=== PATIENT | male | born 1955 | race Caucasian/White ===

== ENCOUNTER 2017-10-05 08:22 | Day surgery (SDC) | payer OTHER ==
[2017-10-05] VITALS (9 sets, daily range): BP systolic 130–164; BP diastolic 60–96
[~2017-10-05] VITALS: Ht 185.4 cm; Wt 103.4 kg
--- NOTE | 2017-10-05 07:35 | Pre-Procedure Note/Attestation ---
Pre-Procedure Note/Attestation Complete Prior to Procedure Planned Procedure: left Procedure Narrative: cataract extraction with implant left eye Indications for Procedure Pre-Operative Diagnosis: cataract left eye Attestation I attest that I discussed the nature of the procedure; its benefits; risks and complications; and alternatives (and the risks and benefits of such alternatives ), prior to the procedure, with the patient (or the patient's legal data entry representative). I attest that, if there was a reasonable possibility of needing a blood transfusion, the patient (or the patient's legal data entry representative) was given the [facility] standardized written summary, pursuant to the [place] Blood Safety Act ([place] [facility] and Safety Code # 1645, as amended). I attest that I re-evaluated the patient just prior to the surgery and that there has been no change in the patient's H&P, except as documented below: Jorge Carrillo MD Oct 05, 2017 07:35
[~2017-10-05 08:22] MED LIST: Akten 3.5% 1ml Btl ONE; BSS 15ml BTL ONE; BSS 500ml btl ONE; COUMADIN7.5 MG ORAL; Dexamethasone 4mg/ml vial ONE; EPINEPHrine 1mg/1ml Amp ONE; LISINOPRIL5 MG ORAL; Lidocaine 1% MPF 10mg/ml 5ml ONE; METOPROLOL SUCC25 MG ORAL; Povidone-Iodine 5% opth solution ONE; SIMVASTATIN5 MG ORAL; Sodium Hyaluronate 14 mg/ml 0.85ml ONE; Tobradex Opth Susp 2.5ml ONE; VITAMIN D1000 UNI1 ORAL
[2017-10-05] MEDS: Akten 3.5% 1ml Btl LEFT EYE SCH ×3 (08:49→09:10)
[2017-10-05] MEDS: Flurbiprofen 0.03% Opth Sol 2.5ml LEFT EYE SCH ×3 (08:49→09:10)
[2017-10-05] MEDS: Vigamox Opth Soln 3ml LEFT EYE SCH ×3 (08:49→09:10)
[2017-10-05] MEDS: Tropicamide 1% Opth 15ml Soln LEFT EYE SCH ×3 (08:49→09:09)
[2017-10-05] MEDS: Tobradex Opth Susp 2.5ml LEFT EYE SCH ×3 (08:49→09:10)
[2017-10-05] MEDS: Phenylephrine 2.5% Op 2ml Soln LEFT EYE SCH ×3 (08:49→09:10)
[2017-10-05] MEDS ORDERED: fentaNYL 100 mcg/2 mL IV ONE (10:00)
[2017-10-05] MEDS ORDERED: LR 1000ml ONE (10:00)
[2017-10-05] MEDS ORDERED: Midazolam 2mg/2ml Inj ONE (10:00)
[2017-10-05] MEDS ORDERED: Sterile Water Irrig 1000ml IRRIG ONE (10:00)
[2017-10-05] MEDS ORDERED: NS Irrig 1000ml ONE (10:00)
--- NOTE | 2017-10-05 10:14 | Anethesia Preoperative Eval ---
Anesthesia Pre-op PMH/ROS General Date of Evaluation: Oct 05, 2017 Time of Evaluation: 09:55 Anesthesiologist: inga ASA Score: ASA 2 Mallampati Score Class I : Soft palate, uvula, fauces, pillars visible Class II: Soft palate, uvula, fauces visible Class III: Soft palate, base of uvula visible Class IV: Only hard plate visible Mallampati Classification: Class II Surgeon: dave Diagnosis: cataract Surgical Procedure: cataract extraction Anesthesia History: none Allergies: Coded Allergies: No Known Allergies (Unverified , 10/05/17) Past Medical History Cardiovascular: Reports: HTN, CAD; Denies: SD, valve dz, arrhythmia, other Pulmonary: Denies: asthma, COPD, CHERY, other Gastrointestinal/Genitourinary: Denies: GERD, CRI, ESRD, other Neurologic/Psychiatric: Denies: dementia, CVA, depression/anxiety, TIA, other Endocrine: Denies: DM, hypothyroidism, steroids, other HEENT: Reports: cataract (L); Denies: cataract (R), glaucoma, POINT LAY IRA (L), POINT LAY IRA (R), other Hematology/Immune: Reports: DVT, bleeding disorder Other: obesity PSxH Narrative: cataract extraction Anesthesia Pre-op Phys. Exam Physician Exam Last Vital Signs Date Time Temp Pulse Resp B/P (MAP) Pulse Ox O2 Delivery O2 Flow Rate FiO2 10/05/17 09:04 97.8 50 18 160/78 98 Room Air 97.8 Constitutional: NAD Neurologic: CN 2-12 intact Cardiovascular: RRR Respiratory: CTA Gastrointestinal: S/NT/ND Airway Exam Mallampati Classification 2 Mallampati Score: Class III MO: full ROM: full Anesthesia Pre-op A/P Studies Pre-op Studies: EKG - sr Risk Assessment & Plan Assessment: on coumadin for DVT; inr 2.5; dr acosta and team aware; no changes in health since last surgery Plan: mac Status Change Before Surgery: No Pre-Antibiotics Drug: gAnes Garcia CRNA Oct 05, 2017 10:14
--- NOTE | 2017-10-05 10:36 | Brief Operative Note ---
Immediate Post Operative Note Operative Note Pre-op Diagnosis: cataract left eye Procedure: phacoemulsification of cataract with implant left eye Post-op Diagnosis: same as pre-op Surgeon: jorge acosta Radio Division Lieutenant: none Anesthesiologist: hector xiong crna Anesthesia: MAC Specimen: none Complications: none Condition: stable Fluids: none Estimated Blood Loss: none Drains: none Implant(s) used?: Yes Jorge Acosta MD Oct 05, 2017 10:36
--- NOTE | 2017-10-05 10:58 | Immediate Post-Op Evaluation ---
Immediate Post-Op Evalulation Immediate Post-Op Evalulation Procedure: cataract extraction left eye Date of Evaluation: Oct 05, 2017 Time of Evaluation: 10:30 IV Fluids: 200 Blood Pressure Systolic: 130 Blood Pressure Diastolic: 60 Pulse Rate: 45 Respiratory Rate: 14 O2 Sat by Pulse Oximetry: 98 Temperature (Fahrenheit): 98.2 Pain Score (1-10): 0 Nausea: No Vomiting: No Complications none Patient Status: awake, reacts, patent Hydration Status: adequate Drug: none Agnes Paul CRNA Oct 05, 2017 10:58
--- NOTE | 2017-10-05 12:42 | 48 Hour Post Anesthesia Eval ---
Post Anesthesia Evaluation Procedure: cataract extraction left eye Date of Evaluation: Oct 05, 2017 Time of Evaluation: 12:42 Blood Pressure Systolic: 149 0: 82 Pulse Rate: 48 O2 Sat by Pulse Oximetry: 98 Airway: patent Nausea: No Vomiting: No Hydration Status: adequate Cardiopulmonary Status: stable Mental Status/LOC: patient returned to baseline Follow-up Care/Observations: na Post-Anesthesia Complications: none Follow-up care needed: N/A Agnes Paul CRNA Oct 05, 2017 12:42
--- NOTE | 2017-10-05 22:15 | Operative Note - Dictated ---
DATE OF OPERATION: 10/05/2017 PREOPERATIVE DIAGNOSIS: Cataract, left eye. POSTOPERATIVE DIAGNOSIS: Cataract, left eye. PROCEDURE: Phacoemulsification, cataract, left eye with placement of posterior intraocular lens. SURGEON: Jorge Carrillo M.D. PRINT LINE INSPECTOR: None. ANESTHESIA: MAC/topical. ANESTHESIOLOGIST: Agnes Paul CRNA. INDICATION FOR PROCEDURE: Poor vision, left eye. DESCRIPTION OF FINDINGS: Nuclear sclerotic and posterior subcapsular cataract, left eye. DESCRIPTION OF PROCEDURE: The patient received a topical anesthetic block consisting of 3.5% Akten eyedrops. The eye was prepped and draped in usual manner. A lid speculum was placed and a Zeiss microscope was positioned. A temporal corneal groove was made with a luis blade. A SuperSharp blade made a stab incision at the 6 o'clock position. A 0.1 mL of 1% nonpreserved intracameral lidocaine was injected. Healon was instilled into the anterior chamber and a 2.5/2.8 mm trapezoidal luis blade was used to complete the temporal corneal wound. A cystotome was used to create an anterior capsular flap. Utrata forceps were used to complete the capsulorrhexis. BSS on a cannula was used to hydrodissect the nucleus. The lens nucleus was phacoemulsified in a phaco-fracture technique. Remaining cortical material was removed with I/A and the posterior capsule was polished with the I/A on Cap vac. Healon was instilled in the capsular bag and anterior chamber, and an Abbot foldable one-piece preloaded posterior chamber intraocular lens, model ZCB00, power 15.0 diopter, serial #[id number], was placed in the capsular bag. The I/A tip was used to remove the Healon and position the lens. The wound edge was hydrated with BSS and a blunt-tipped cannula. The wound was checked and found to be watertight. The lid speculum was removed and a drop of TobraDex and Vigamox was placed. A clear plastic shield was taped over the eye. The patient tolerated the procedure well and left the operating room in good condition. Jorge Carrillo M.D. ([facility] [place]) DR: Andria JOB#: [id number] CC:
== END 2017-10-05 11:40 | disposition home or self-care (01) ==
LOC: SUR 08:22
DX: H25.12 Age-related nuclear cataract, left eye (principal); H25.042 Posterior subcapsular polar age-related cataract, left eye; Z86.718 Personal history of other venous thrombosis and embolism; E78.5 Hyperlipidemia, unspecified; I11.9 Hypertensive heart disease without heart failure
CPT/HCPCS: 66984; J0171; J1100; J2250; J3010; J7120; V2632; 94003; 94150